=== PATIENT | female | born 1960 | race Caucasian/White ===

== ENCOUNTER 2020-06-30 07:04 | Day surgery (SDC) | payer BC ==
[2020-06-30] MEDS ORDERED: fentaNYL 100 MCG/2 ML SDV ONE (07:43)
[2020-06-30] MEDS ORDERED: Propofol 200 MG/20 ML SDV ONE (07:43)
[2020-06-30] MEDS ORDERED: Midazolam 1 MG/ML 2 ML SDV ONE (07:44)
[2020-06-30] MEDS ORDERED: Sodium Chloride 0.9% 1,000 ML IV SCH (08:00)
[2020-06-30] MEDS ORDERED: Ondansetron 4 MG/2 ML SDV ONE (08:51)
--- NOTE | 2020-06-30 12:25 | OR ---
DATE OF PROCEDURE: 06/30/2020 SURGEON: Russ Thrasher MD PROCEDURE: Colonoscopy. FINDINGS: Mass at cecum, approximately 4 cm in size, sessile. COMPLICATIONS: None. EXTRUSION LINE OPERATOR: None. ANESTHESIA: MAC. PREOPERATIVE DIAGNOSIS: Positive Cologuard test. POSTOPERATIVE DIAGNOSIS: Positive Cologuard test. RISKS: Risks, benefits, alternatives, and limitations including, but not limited to infection, bleeding, perforation and general surgical risks were explained to the patient, who wished to proceed. PROCEDURE IN DETAIL: The patient was placed in left lateral decubitus position. Digital rectal exam was performed. Scope was introduced and advanced atraumatically to the ileocecal valve. At the ileocecal valve proper, an approximately 4 cm mass was identified. This was elevated using Destiny ink. This was mostly removed using hot snare wire device. This was not completely removed, due to the concern of perforation. This will be sent to pathology. Scope was brought back through the remainder of the colon, and the patient was noted to have diverticulosis that was described as very mild and limited to sigmoid colon without diverticulosis or bleeding. No abnormalities on retroflexion. The patient tolerated the procedure well. Of note, the patient will be scheduled in approximately 1 month for removal of the remainder of this polyp. Russ Thrasher MD /[id number]
== END 2020-06-30 10:40 | disposition home or self-care (01) ==
LOC: JP.SDS 07:04
PROVIDERS: ATTEND Surgery
DX: D12.0 Benign neoplasm of cecum (principal); K57.30 Diverticulosis of large intestine without perforation or abscess without bleeding; J45.909 Unspecified asthma, uncomplicated; I10 Essential (primary) hypertension; E66.9 Obesity, unspecified; Z68.42 Body mass index [BMI] 45.0-49.9, adult; Z88.5 Allergy status to narcotic agent
CPT/HCPCS: 45381; 45385; J2250; J2405; J2704; J3010; J7030; 88305

== ENCOUNTER 2020-07-27 06:31 | Day surgery (SDC) | payer BC ==
[2020-07-27] MEDS ORDERED: Sodium Chloride 0.9% 1,000 ML IV SCH (07:00)
[2020-07-27] MEDS ORDERED: Propofol 200 MG/20 ML SDV ONE (07:37)
[2020-07-27] MEDS ORDERED: Midazolam 1 MG/ML 2 ML SDV ONE (07:37)
[2020-07-27] MEDS ORDERED: fentaNYL 100 MCG/2 ML SDV ONE (07:37)
--- NOTE | 2020-07-27 09:04 | OR ---
DATE OF PROCEDURE: 07/27/2020 SURGEON: Russ Thrasher MD PROCEDURE: Colonoscopy. FINDINGS: Complete removal of cecal polyp. COMPLICATIONS: None. LANCE CREWMEMBER/MLRS SERGEANT: None. ANESTHESIA: MAC. PREOPERATIVE DIAGNOSIS: Cecal polyp. POSTOPERATIVE DIAGNOSIS: Cecal polyp. RISKS: Risks, benefits, alternatives, and limitations including, but not limited to infection, bleeding, and perforation were explained to the patient, who wished to proceed. PROCEDURE IN DETAIL: The patient was placed in left lateral decubitus position. Digital rectal exam was performed without abnormality. Scope was introduced and advanced atraumatically to the ileocecal valve. Within the ileocecal valve, there was approximately 2 cm of polypoid-type lesion. This was removed using a snare wire device. Minimal bleeding was noted after this. The patient is again noted to have diverticulosis. No abnormalities on retroflexion. The patient tolerated the procedure well. Russ Thrasher MD /[id number]
== END 2020-07-27 09:30 | disposition home or self-care (01) ==
LOC: JP.SDS 06:31
PROVIDERS: ATTEND Surgery
DX: D12.0 Benign neoplasm of cecum (principal); I10 Essential (primary) hypertension; E66.01 Morbid (severe) obesity due to excess calories; J45.909 Unspecified asthma, uncomplicated; Z68.42 Body mass index [BMI] 45.0-49.9, adult; Z88.5 Allergy status to narcotic agent
CPT/HCPCS: 45385; J2250; J2704; J3010; J7030; 88305

== ENCOUNTER 2021-04-24 00:37 | Emergency (ER) | payer BC ==
--- NOTE | 2021-04-24 01:15 | EDM.PDOC ---
ED HPI GENERAL MEDICAL PROBLEM - General Chief Complaint: ENT Problem Stated Complaint: TOOTH BLEEDING Time Seen by Provider: 04/24/21 01:00 Source of Information: Reports: Patient, Family History Limitations: Reports: No Limitations - History of Present Illness INITIAL COMMENTS - FREE TEXT/NARRATIVE: 60-year-old female felt a blood clot in her mouth after eating supper tonight, and she has an oozing broken tooth on the right maxilla that will not stop bleeding. She also states she has blood in her urine which is new, and a rash on her legs. Her energy level has been normal, no fevers or chills. No recent trauma. She takes a 5 mg amlodipine blood pressure pill, her only medication. Onset: Unknown/Unsure Associated Symptoms: Reports: Other (She has some intermittent left flank pain). 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: Musculoskeletal History: Reports: None Psychiatric History: Reports: Anxiety - Infectious Disease History Infectious Disease History: Reports: Chicken Pox - Past Surgical History HEENT Surgical History: Reports: None Cardiovascular Surgical History: Reports: None GI Surgical History: Reports: Appendectomy, Colonoscopy Female Surgical History: Reports: Section, Kidney stone extraction Musculoskeletal Surgical History: Reports: Arthroscopic Knee, Knee Replacement Social & Family History - Family History Cardiac: Reports: None - Tobacco Use Tobacco Use Status *Q: Never Tobacco User Second Hand Smoke Exposure: Yes - Caffeine Use Caffeine Use: Reports: Soda, Tea - Recreational Drug Use Recreational Drug Use: No ED ROS GENERAL - Review of Systems Review Of Systems: See Below Constitutional: Denies: Fever, Chills, Malaise HEENT: Reports: Other (Oral bleeding) Respiratory: Denies: Shortness of Breath Cardiovascular: Denies: Chest Pain GI/Abdominal: Denies: Abdominal Pain, Nausea, Vomiting Skin: Reports: Other (Petechiae have broken out on her lower extremities over the past several hours) Neurological: Denies: Dizziness, Headache ED EXAM, GENERAL - Physical Exam Exam: See Below Exam Limited By: No Limitations General Appearance: Alert, No Apparent Distress Eye Exam: Bilateral Eye: Normal Inspection Throat/Mouth: Other (Patient has slow bleeding from several locations in the maxilla, also some small dark bulla in the mucosa) Neck: Supple, Non-Tender Respiratory/Chest: Lungs Clear Cardiovascular: Regular Rate, Rhythm GI/Abdominal: Soft, Non-Tender Extremities: Other (Numerous petechia bilaterally in the lower extremities) Neurological: Alert, Oriented, No Motor/Sensory Deficits Psychiatric: Anxious Skin Exam: Other (Numerous petechia of the lower extremities) Course - Vital Signs Last Recorded V/S: Last Vital Signs Temp 97.6 F 04/24/21 00:53 Pulse 73 04/24/21 00:53 Resp 16 04/24/21 00:53 BP 157/79 H 04/24/21 00:53 Pulse Ox 98 04/24/21 00:53 - Orders/Labs/Meds Labs: Laboratory Tests 04/24/21 04/24/21 04/24/21 Range/Units 01:15 01:15 01:15 WBC 8.2 (4.5-11.0) K/uL RBC 4.99 (3.30-5.50) M/uL Hgb 15.1 H (12.0-15.0) g/dL Hct 46.2 (36.0-48.0) % MCV 93 (80-98) fL MCH 30 (27-31) pg MCHC 33 (32-36) % Plt Count 6 L* (150-400) K/uL Neut % (Auto) 58.0 (36-66) % Lymph % (Auto) 29.0 (24-44) % [place] % (Auto) 9.7 H (2-6) % Eos % (Auto) 2.8 (2-4) % Baso % (Auto) 0.5 (0-1) % PT 10.1 (9.5-12.0) sec INR 0.93 (0.80-1.20) APTT 24.7 L (27.0-36.0) sec Sodium 143 (140-148) mmol/L Potassium 4.0 (3.6-5.2) mmol/L Chloride 105 (100-108) mmol/L Carbon Dioxide 27 (21-32) mmol/L Anion Gap 11.5 (5.0-14.0) mmol/L BUN 17 (7-18) mg/dL Creatinine 0.8 (0.6-1.0) mg/dL Est Cr Clr Drug Dosing TNP Estimated GFR (MDRD) > 60 (>60) Glucose 114 H (74-106) mg/dL Calcium 8.9 (8.5-10.1) mg/dL Total Bilirubin 0.6 (0.2-1.0) mg/dL AST 21 (15-37) U/L ALT 30 (12-78) U/L Alkaline Phosphatase 87 (46-116) U/L Total Protein 7.2 (6.4-8.2) g/dL Albumin 3.4 (3.4-5.0) g/dL Globulin 3.8 H (2.3-3.5) g/dL Albumin/Globulin Ratio 0.9 L (1.2-2.2) Urine Color (YELLOW) Urine Appearance (CLEAR) Urine pH (5.0-8.0) Ur Specific [place] (1.008-1.030) Urine Protein (NEGATIVE) mg/dL Urine Glucose (UA) (NEGATIVE) mg/dL Urine Ketones (NEGATIVE) mg/dL Urine Occult Blood (NEGATIVE) Urine Nitrite (NEGATIVE) Urine Bilirubin (NEGATIVE) Urine Urobilinogen (0.2-1.0) EU/dL Ur Leukocyte Esterase (NEGATIVE) Urine RBC (0-5) Urine WBC (0-5) Ur Epithelial Cells Amorphous Sediment Urine Bacteria Urine Mucus 04/24/21 Range/Units 01:30 WBC (4.5-11.0) K/uL RBC (3.30-5.50) M/uL Hgb (12.0-15.0) g/dL Hct (36.0-48.0) % MCV (80-98) fL MCH (27-31) pg MCHC (32-36) % Plt Count (150-400) K/uL Neut % (Auto) (36-66) % Lymph % (Auto) (24-44) % [place] % (Auto) (2-6) % Eos % (Auto) (2-4) % Baso % (Auto) (0-1) % PT (9.5-12.0) sec INR (0.80-1.20) APTT (27.0-36.0) sec Sodium (140-148) mmol/L Potassium (3.6-5.2) mmol/L Chloride (100-108) mmol/L Carbon Dioxide (21-32) mmol/L Anion Gap (5.0-14.0) mmol/L BUN (7-18) mg/dL Creatinine (0.6-1.0) mg/dL Est Cr Clr Drug Dosing Estimated GFR (MDRD) (>60) Glucose (74-106) mg/dL Calcium (8.5-10.1) mg/dL Total Bilirubin (0.2-1.0) mg/dL AST (15-37) U/L ALT (12-78) U/L Alkaline Phosphatase (46-116) U/L Total Protein (6.4-8.2) g/dL Albumin (3.4-5.0) g/dL Globulin (2.3-3.5) g/dL Albumin/Globulin Ratio (1.2-2.2) Urine Color Red A (YELLOW) Urine Appearance Cloudy A (CLEAR) Urine pH 7.0 (5.0-8.0) Ur Specific [place] 1.020 (1.008-1.030) Urine Protein 30 H (NEGATIVE) mg/dL Urine Glucose (UA) Negative (NEGATIVE) mg/dL Urine Ketones Negative (NEGATIVE) mg/dL Urine Occult Blood Large H (NEGATIVE) Urine Nitrite Negative (NEGATIVE) Urine Bilirubin Negative (NEGATIVE) Urine Urobilinogen 0.2 (0.2-1.0) EU/dL Ur Leukocyte Esterase Negative (NEGATIVE) Urine RBC >100 H (0-5) Urine WBC 0-5 (0-5) Ur Epithelial Cells Few Amorphous Sediment Not seen Urine Bacteria Few Urine Mucus Not seen Meds: Medications Discontinued Medications Generic Name Dose Route Start Last Admin Trade Name Freq PRN Reason Stop Dose Admin Dexamethasone 12 mg 04/24/21 01:57 04/24/21 02:04 Dexamethasone 4 Mg/Ml Sdv IVPUSH 04/24/21 01:58 12 mg ONETIME ONE Administration Immune Globulin 100 gm 04/24/21 01:56 04/24/21 02:47 Immune Globulin,Gamma (Igg) 20 Gm/200 Ml Sdv IV 04/24/21 01:57 100 gm ONETIME ONE Administration - Re-Assessments/Exams Free Text/Narrative Re-Assessment/Exam: 04/24/21 01:15 This patient has a combination of spontaneous oral mucosal bleeding, hematuria and petechiae of the lower extremities. 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 04/24/21 02:39 PT and PTT were normal, hemoglobin was normal and white count normal. White cell differential basically normal. Platelet count was only 6000, indicating ITP. IV was started and the patient was given 100 g of IVIG, along with 12 mg of IV dexamethasone. Phone consultation was made with [facility] with Dr. Diaz, hospitalist, and the oncologist on-call. Acceptance was made for transfer. Departure - Departure Time of Disposition: 02:51 Disposition: DC/Tfer to Other Clinical Impression: Acute ITP, Mucosal bleeding, Hematuria, gross - Discharge Information Referrals: PCP,None [Primary Care Provider] - Forms: ED Department Discharge Care Plan Goals: Patient was transferred to [facility] for admission for observation and further treatment for acute onset ITP and severe thrombocytopenia with spontan eous hemorrhage. Sepsis Event Note (ED) - Evaluation Sepsis Screening Result: No Definite Risk - Focused Exam Vital Signs: Vital Signs Temp Pulse Resp BP Pulse Ox 04/24/21 00:53 97.6 F 73 16 157/79 H 98
[2021-04-24] MEDS ORDERED: [UNRECOGNIZED DRUG - OTHER] IV ONE (01:56)
[2021-04-24] MEDS ORDERED: IMMUNE GLOBULIN GAMMA IV ONE (01:56)
[2021-04-24] MEDS ORDERED: Dexamethasone 4 MG/ML SDV IVPUSH ONE (01:57)
== END 2021-04-24 02:51 | disposition other institution (70) ==
LOC: JP.ED 00:37
DX: R04.89 Hemorrhage from other sites in respiratory passages (principal); K13.79 Other lesions of oral mucosa; D69.3 Immune thrombocytopenic purpura; R31.0 Gross hematuria; I10 Essential (primary) hypertension; Z88.6 Allergy status to analgesic agent
CPT/HCPCS: 36415; 80053; 81001; 85025; 85610; 85730; 96374; 96375; 99285; J1100; J1569

== ENCOUNTER 2021-04-30 07:00 | Emergency (ER) | payer BC ==
[2021-04-30] MEDS ORDERED: Ondansetron 4 MG/2 ML SDV IVPUSH ONE ×2 (07:19→11:10)
[2021-04-30] MEDS ORDERED: HYDROmorphone 0.5 MG/0.5 ML Syringe IVPUSH ONE ×3 (07:19→11:10)
--- NOTE | 2021-04-30 07:24 | EDM.PDOC ---
<Sergio Lopez - Last Filed: 04/30/21 12:06> ED HPI GENERAL MEDICAL PROBLEM - General Chief Complaint: Abdominal Pain Stated Complaint: LIGHT HEADED, RECENTLY DIAGNOSED WITH ITP Time Seen by Provider: 04/30/21 07:05 - Related Data Allergies Allergy/AdvReac Type Severity Reaction Status Date / Time morphine Allergy Nausea and Verified 04/30/21 07:12 Vomiting Home Meds: Home Meds amLODIPine Besylate [Amlodipine Besylate] 5 mg PO BEDTIME 06/27/20 [History] Omeprazole 20 mg PO DAILY 04/30/21 [History] predniSONE [Prednisone] 40 mg PO DAILY 04/30/21 [History] Course - Re-Assessments/Exams Free Text/Narrative Re-Assessment/Exam: 04/30/21 09:11 IMPRESSION: 1. Intra and extrahepatic bile duct dilation, with multiple stones in the mid and distal common bile duct. 2. Mild fat stranding about the distal pancreatic body and tail compatible with acute pancreatitis. No evidence of parenchymal necrosis. No dilation of the pancreatic duct. 3. New stones within the left renal pelvis measuring up to 1.8 cm in size, with caliceal dilation suggesting a degree of obstruction. There is also urothelial thickening and enhancement of the proximal left ureter which may be inflammatory. 4. New 1.8 cm cystic lesion in the left adnexa. This could be further evaluated with nonemergent pelvic ultrasound. 04/30/21 10:28 Dr. Queen accepted transfer the patient. She will be transferred to the [facility] in [place]. She remained stable. I personally performed or re-performed the physical examination and medical decision making. I have verified all student documentation or findings, including history, physical exam and/or medical decision making. 04/30/21 12:05 Lactated Ringer's at 500 cc an hour was started on discharge, she will receive this while being transferred Departure - Departure Time of Disposition: 11:23 Disposition: DC[facility]fer [facility] Clinical Impression: Pancreatitis Qualifiers: Chronicity: acute Pancreatitis type: biliary Acute pancreatitis complication: unspecified Qualified Code(s): K85.10 - Biliary acute pancreatitis without necrosis or infection Abdominal pain Qualifiers: Abdominal location: upper abdomen, unspecified Qualified Code(s): R10.10 - Upper abdominal pain, unspecified - Discharge Information Referrals: Corrina Bentley MD [Primary Care Provider] - Forms: ED Department Discharge Care Plan Goals: Patient is to be transferred to [facility] to be admitted by the hospitalist service, Dr. Queen accepted the patient. She will need a gastroenterology consultation and likely ERCP or surgical consultation to treat biliary induced pancreatitis. <Hilary Sandoval - Last Filed: 04/30/21 13:08> ED HPI GENERAL MEDICAL PROBLEM - General Source of Information: Reports: Patient, Family History Limitations: Reports: No Limitations - History of Present Illness INITIAL COMMENTS - FREE TEXT/NARRATIVE: 60 year old female with recent diagnosis for ITP, platelet count of 6,000, presents with abdominal pain. She reports that she was just discharged from [facility] after about a one week inpatient stay due to treatment for her ITP. When she left her platelets were between 70,000-75,000. Center to right upper quadrant abdominal pain started last night. The pain radiates to her center back and feels like "a rubber band is strapping around her". Her pain d oes seem to be intermittent. Associated symptoms include nausea, vomiting, blood in urine, and "some dark spots in her stool noted this AM". She reports she was started on "steroids" and continues those out patient after her discharge from [place]. Onset: Gradual Onset Date: 04/29/21 Duration: Day(s): Location: Reports: Abdomen (Center to right upper quadrent abdominal pain, radiating to her center back) Quality: Reports: Other ("Feels like a rubber band strapping around her") Improves with: Reports: None Worsens with: Reports: None Associated Symptoms: Reports: Nausea/Vomiting Upper Abdomen Pain Score (Numeric/FACES): 10 Past Medical History HEENT History: Reports: Other (See Below) Other HEENT History: broken teeth Cardiovascular History: Reports: Hypertension Gastrointestinal History: Reports: None Genitourinary History: Reports: None, 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: Musculoskeletal History: Reports: None Psychiatric History: Reports: Anxiety - Infectious Disease History Infectious Disease History: Reports: Chicken Pox - Past Surgical History HEENT Surgical History: Reports: None Cardiovascular Surgical History: Reports: None GI Surgical History: Reports: Appendectomy, Colonoscopy Female Surgical History: Reports: Section, Kidney stone extraction Musculoskeletal Surgical History: Reports: Arthroscopic Knee, Knee Replacement Social & Family History - Family History Cardiac: Reports: None - Caffeine Use Caffeine Use: Reports: Soda, Tea ED ROS GENERAL - Review of Systems Review Of Systems: See Below Constitutional: Reports: Malaise, Fatigue HEENT: Reports: No Symptoms Respiratory: Denies: Shortness of Breath, Pleuritic Chest Pain Cardiovascular: Denies: Chest Pain Endocrine: Reports: No Symptoms GI/Abdominal: Reports: Abdominal Pain, Bloody Stool, Nausea, Vomiting. Denies: Diarrhea : Reports: Hematuria Musculoskeletal: Reports: No Symptoms Skin: Reports: Other (Bilateral lower extremity petechi ) Neurological: Reports: No Symptoms Psychiatric: Reports: No Symptoms Hematologic/Lymphatic: Reports: Easy Bleeding Immunologic: Reports: No Symptoms ED EXAM, GI/ABD - Physical Exam Exam: See Below Text/Narrative:: Patient is laying on the cart on her left side, guarding her abdomen and at times moaning out due to the pain. Petechia present to bilateral lower extremities, abdomen is tender with palpation to center and right upper quadrant. Scattered bruising to legs and abdomen. Lungs clear throughout. Provider bedside US did not reveal any obvious acute bleeding or abnormal appearance of gallbladder. She is alert and oriented, skin is warm and dry, Respirations are equal and non labored. Exam Limited By: No Limitations General Appearance: Alert, Mild Distress Throat/Mouth: Normal Lips, Normal Voice Head: Atraumatic Neck: Normal Inspection, Full Range of Motion Respiratory/Chest: No Respiratory Distress, Lungs Clear. No: Respiratory Distress Cardiovascular: Normal Peripheral Pulses, Other (Blood pressure stable). No: Tachycardia GI/Abdominal Exam: Soft, Guarding, Tender, Other ( center andRight upper quadrent) (Female) Exam: Normal External Exam Back Exam: Normal Inspection Extremities: Other (petechia bilateral lower extremities) Neurological: Alert, Oriented, Normal Cognition Psychiatric: Normal Affect Skin Exam: Warm, Dry, Petechiae (bilateral lower extremities) Lymphatic: No Adenopathy Course - Vital Signs Text/Narrative:: CBC, CMP, and lipase, CT abdomen with contrast ordered. Provider US obtained without acute obvious findings to the gallbladder, no bleeding in the abdomen seen. 0.5 mg Dilaudid and 4mg Zofran given for pain and nausea control which seem to be helping as blood pressure is decreased and the patient is no longer holding emesis bag. Cool compress to forehead. Patient is in agreement with plan of care at this time. Last Recorded V/S: Last Vital Signs Temp 36.1 C 04/30/21 10:46 Pulse 53 L 04/30/21 10:46 Resp 20 04/30/21 10:46 BP 164/77 H 04/30/21 10:46 Pulse Ox 100 04/30/21 10:46 - Orders/Labs/Meds Labs: Laboratory Tests 04/30/21 04/30/21 04/30/21 Range/Units 07:35 07:35 07:35 WBC 15.0 H (4.5-11.0) K/uL RBC 5.09 (3.30-5.50) M/uL Hgb 15.5 H (12.0-15.0) g/dL Hct 45.6 (36.0-48.0) % MCV 90 (80-98) fL MCH 31 (27-31) pg MCHC 34 (32-36) % Plt Count 90 L (150-400) K/uL Neut % (Auto) 76.3 H (36-66) % Lymph % (Auto) 15.1 L (24-44) % [place] % (Auto) 8.3 H (2-6) % Eos % (Auto) 0.2 L (2-4) % Baso % (Auto) 0.1 (0-1) % Sodium 138 L (140-148) mmol/L Potassium 3.7 (3.6-5.2) mmol/L Chloride 103 (100-108) mmol/L Carbon Dioxide 25 (21-32) mmol/L Anion Gap 13.7 (5.0-14.0) mmol/L BUN 19 H (7-18) mg/dL Creatinine 1.0 (0.6-1.0) mg/dL Est Cr Clr Drug Dosing 47.80 mL/min Estimated GFR (MDRD) 56 L (>60) Glucose 124 H (74-106) mg/dL Calcium 7.7 L (8.5-10.1) mg/dL Total Bilirubin 0.7 (0.2-1.0) mg/dL AST 50 H D (15-37) U/L ALT 98 H (12-78) U/L Alkaline Phosphatase 64 (46-116) U/L Total Protein 7.4 (6.4-8.2) g/dL Albumin 2.4 L (3.4-5.0) g/dL Globulin 5.0 H (2.3-3.5) g/dL Albumin/Globulin Ratio 0.5 L (1.2-2.2) Lipase 3242 H (73-393) U/L Meds: Medications Discontinued Medications Generic Name Dose Route Start Last Admin Trade Name Freq PRN Reason Stop Dose Admin Hydromorphone HCl 0.5 mg 04/30/21 07:19 04/30/21 07:24 Hydromorphone 0.5 Mg/0.5 Ml Syringe IVPUSH 04/30/21 07:20 0.5 mg ONETIME ONE Administration Hydromorphone HCl 0.5 mg 04/30/21 09:01 04/30/21 09:05 Hydromorphone 0.5 Mg/0.5 Ml Syringe IVPUSH 04/30/21 09:02 0.5 mg ONETIME ONE Administration Hydromorphone HCl 0.5 mg 04/30/21 11:10 04/30/21 11:15 Hydromorphone 0.5 Mg/0.5 Ml Syringe IVPUSH 04/30/21 11:11 0.5 mg ONETIME ONE Administration Sodium Chloride 1,000 mls @ 250 mls/hr 04/30/21 07:30 04/30/21 07:29 Normal Saline IV 250 mls/hr ASDIRECTED JOHNATHON Administration Sodium Chloride 85 mls @ 3 mls/sec 04/30/21 08:15 04/30/21 08:19 Normal Saline IV 04/30/21 08:16 3 mls/sec ONETIME ONE Administration Lactated Ringer's 1,000 mls @ 500 mls/hr 04/30/21 11:30 04/30/21 11:22 Ringers, Lactated IV 500 mls/hr ASDIRECTED JOHNATHON Administration Iopamidol 150 ml 04/30/21 08:15 04/30/21 08:19 Iopamidol 612 Mg/Ml 150 Ml Bottle IV 150 ml . DIRECTED JOHNATHON Administration Metoclopramide HCl 5 mg 04/30/21 08:18 04/30/21 08:24 Metoclopramide 10 Mg/2 Ml Sdv IVPUSH 04/30/21 08:19 5 mg ONETIME ONE Administration Ondansetron HCl 4 mg 04/30/21 07:19 04/30/21 07:25 Ondansetron 4 Mg/2 Ml Sdv IVPUSH 04/30/21 07:20 4 mg ONETIME ONE Administration Ondansetron HCl 4 mg 04/30/21 11:10 04/30/21 11:15 Ondansetron 4 Mg/2 Ml Sdv IVPUSH 04/30/21 11:11 4 mg ONETIME ONE Administration Sodium Chloride 10 ml 04/30/21 08:15 04/30/21 08:19 Sodium Chloride 0.9% 10 Ml Syringe FLUSH 10 ml ONETIME PRN Administration PER RADIOLOGY PROTOCOL - Re-Assessments/Exams Free Text/Narrative Re-Assessment/Exam: Nausea continues despite Zofran. Ordered 5mg of Reglan 04/30/21 08:49 04/30/21 09:04 0.5 mg Dilaudid repeat dose ordered for returning pain. Results of CT are back with multiple stones in CBD, this patient might need an ERCP. Decision to transfer to [facility] for higher level of care. Departure - Departure Time of Disposition: 11:23 Sepsis Event Note (ED) - Focused Exam Vital Signs: Vital Signs Temp Pulse Resp BP Pulse Ox 04/30/21 10:46 36.1 C 53 L 20 164/77 H 100 04/30/21 08:22 52 L 20 173/88 H 95 04/30/21 07:41 54 L 20 118/41 L 95 04/30/21 07:22 36.3 C 63 18 157/76 H 98 04/30/21 07:21 36.3 C 63 18 157/76 H 98
[2021-04-30] MEDS ORDERED: Sodium Chloride 0.9% 1,000 ML IV SCH (07:30)
[2021-04-30] MEDS ORDERED: Iopamidol 612 MG/ML 150 ML Bottle IV SCH (08:15)
[2021-04-30] MEDS ORDERED: Sodium Chloride 0.9% 10 ML Syringe FLUSH PRN (08:15)
[2021-04-30] MEDS ORDERED: Metoclopramide 10 MG/2 ML SDV IVPUSH ONE (08:18)
--- NOTE | 2021-04-30 08:57 | CRLCT ---
For Patients: As a result of the 21st Century Cures Act, medical imaging exams and procedure reports are released immediately into your electronic medical record. You may view this report before your referring provider. If you have questions, please contact your health care provider. INDICATION: Upper abdominal pain, nausea TECHNIQUE: CT of the abdomen and pelvis with 150 cc Isovue-300 IV contrast. Coronal and sagittal reconstructions. COMPARISON: CT of the abdomen and pelvis 04/24/2007. FINDINGS: Mild diffuse hepatic steatosis. The spleen and adrenal glands are negative. Hepatic and portal veins are patent. There is mild intra and extrahepatic bile duct dilation, with the common bile duct measuring up to 11 mm in diameter. There are multiple stones within the mid and distal common bile duct (series 3 image 48). The gallbladder is normal in appearance. Mild inflammatory fat stranding about the distal pancreatic body and tail compatible with acute pancreatitis. No dilation of the pancreatic duct. No evidence of parenchymal necrosis. No peripancreatic fluid collection. Symmetric enhancement of the kidneys. No right hydronephrosis no ureteral dilation. There are two new stones within the left renal pelvis measuring 1.2 cm and 1.8 cm (series 2, image 64). Additional small nonobstructing stone in the lower pole of the left kidney. There is left renal calyceal dilation suggesting a degree of obstruction. No dilation of the left ureter. There is urothelial thickening and enhancement of the proximal left ureter which may be inflammatory. The bladder and uterus are normal in appearance. There is a new 1.8 cm cystic lesion in the left adnexa (series 2, image 125). No bowel dilation. Colonic diverticulosis without evidence of diverticulitis. The appendix is not identified. No intraperitoneal free air or fluid. Retroaortic left renal vein. No lymphadenopathy. Degenerative changes of the lower thoracic spine. The lung bases are clear. IMPRESSION: 1. Intra and extrahepatic bile duct dilation, with multiple stones in the mid and distal common bile duct. 2. Mild fat stranding about the distal pancreatic body and tail compatible with acute pancreatitis. No evidence of parenchymal necrosis. No dilation of the pancreatic duct. 3. New stones within the left renal pelvis measuring up to 1.8 cm in size, with caliceal dilation suggesting a degree of obstruction. There is also urothelial thickening and enhancement of the proximal left ureter which may be inflammatory. 4. New 1.8 cm cystic lesion in the left adnexa. This could be further evaluated with nonemergent pelvic ultrasound. Please note that all CT scans at this facility use dose modulation, iterative reconstruction, and/or weight-based dosing when appropriate to reduce radiation dose to as low as reasonably achievable. Dictated by Cherelle Joseph MD @ 04/30/2021 8:54:[address] Cherelle Joseph @ Apr 30 2021 8:54AM
[2021-04-30] MEDS ORDERED: Lactated Ringers 1,000 ML IV SCH (11:30)
== END 2021-04-30 11:26 ==
LOC: JP.ED 07:00
DX: K85.10 Biliary acute pancreatitis without necrosis or infection (principal); I10 Essential (primary) hypertension; Z88.5 Allergy status to narcotic agent; Z79.899 Other long term (current) drug therapy
CPT/HCPCS: 36415; 74177; 80053; 83690; 85025; 96374; 96375; 96376; 99285; J1170; J2405; J2765; J7030; J7120; Q9967

== ENCOUNTER 2021-07-16 06:27 | Day surgery (SDC) | payer BC ==
[2021-07-16] MEDS ORDERED: Sodium Chloride 0.9% 1,000 ML IV SCH (07:30)
[2021-07-16] MEDS ORDERED: Propofol 200 MG/20 ML SDV ONE (07:33)
[2021-07-16] MEDS ORDERED: fentaNYL 100 MCG/2 ML SDV ONE (07:33)
[2021-07-16] MEDS ORDERED: Midazolam 1 MG/ML 2 ML SDV ONE (07:33)
--- NOTE | 2021-07-16 11:11 | OR ---
DATE OF PROCEDURE: 07/16/2021 SURGEON: Russ Thrasher MD PROCEDURE: Colonoscopy. FINDINGS: Sessile type polypoid lesion on the cecum (completely removed in 1 piece using endoscopic mucosal resection technique). COMPLICATIONS: None. ELECTRONIC WARFARE TECHNICIAN: None. ANESTHESIA: MAC. PREOPERATIVE DIAGNOSIS: History of colon polyps. POSTOPERATIVE DIAGNOSIS: History of colon polyps. RISKS: Risks, benefits, alternatives, and limitations including, but not limited to infection, bleeding, perforation, false positives, and false negatives were explained to the patient and she wished to proceed. PROCEDURE IN DETAIL: The patient was placed in left lateral decubitus position. Digital rectal exam was performed without abnormality. Scope was introduced and advanced atraumatically to the ileocecal valve. At the junction of the ileocecal valve and the cecum, there was a sessile type polypoid type lesion. This was approximately 1.5 cm in size. This was resected using endoscopic mucosal resection technique including elevation with normal saline and subsequent resection with wire device. This was removed in 1 single piece. This was sent to pathology. No abnormal bleeding was noted after removal. Scope was brought back to the remainder of the colon. The patient did have some small scattered diverticula. No other abnormalities were noted. Greater than 8 minutes was spent removing the scope. Prep was acceptable, approximately 90% of the luminal surface could be seen. The patient tolerated the procedure well. Russ Thrasher MD /[id number]
== END 2021-07-16 09:42 | disposition home or self-care (01) ==
LOC: JP.SDS 06:27
PROVIDERS: ATTEND Surgery
DX: Z12.11 Encounter for screening for malignant neoplasm of colon (principal); K57.30 Diverticulosis of large intestine without perforation or abscess without bleeding; D12.0 Benign neoplasm of cecum; E66.9 Obesity, unspecified; Z88.5 Allergy status to narcotic agent
CPT/HCPCS: 45390; J2250; J2704; J3010; J7030; 88305

== ENCOUNTER 2025-01-25 14:38 | Observation (INO) | payer BC ==
[2025-01-25] MEDS ORDERED: Sodium Chloride 0.9% 10 ML Syringe FLUSH PRN (16:03)
[2025-01-25] MEDS: Sodium Chloride 0.9% 10 ML Syringe FLUSH ONE (16:39)
[2025-01-25] MEDS: Iopamidol 755 Mg/ML 100 ML Bottle IV ONE (16:39)
[2025-01-25] MEDS: Sodium Chloride 0.9% 100 ML IV ONE (16:39)
[2025-01-25] MEDS: Aspirin 81 MG Tab.EC PO ONE (17:57)
[2025-01-25] MEDS ORDERED: Ondansetron 4 MG/2 ML SDV IV PRN (20:43)
[2025-01-25] MEDS ORDERED: Sennosides/Docusate Sodium 50-8.6 MG Tab PO PRN (20:43)
[2025-01-25] MEDS ORDERED: Melatonin 3 MG Tab PO PRN (20:43)
[2025-01-25] MEDS ORDERED: Ondansetron 4 MG Tab.DIS PO PRN (20:43)
[2025-01-25] MEDS: atorvaSTATin 20 MG Tab PO SCH (21:00)
[2025-01-25] MEDS: Clopidogrel 75 MG Tab PO SCH (21:00)
[2025-01-26] MEDS: Acetaminophen 325 MG Tab PO PRN (05:19)
[2025-01-26 05:56] LABS: HEMOGLOBIN 15.4 g/dL (11.2-15.5); MEAN CORPUSCULAR HEMOGLOBIN 31.2 pg (31.6-35.5); MEAN CORPUSCULAR HGB CONC 34.2 g/dL (31.6-35.5); MEAN CORPUSCULAR VOLUME 91.3 fL (81.4-99.0); RED BLOOD CELL COUNT 4.93 M/uL (3.77-5.24); WHITE BLOOD CELL COUNT,WBC 7.4 K/uL (3.2-11.0)
[2025-01-26 06:15] LABS: ANION GAP 11.4 mmol/L (5.0-14.0); CALCIUM 9.3 mg/dL (8.5-10.1); CREATININE 0.8 mg/dL (0.6-1.0); EST CRCL DRUG DOSING (CG) 55.45 mL/min
[2025-01-26] MEDS: Aspirin 81 MG Tab.EC PO SCH (08:21)
[2025-01-26] MEDS ORDERED: amLODIPine 5 MG Tab PO SCH (21:00)
== END 2025-01-26 12:45 | disposition home or self-care (01) ==
LOC: JP.ED 14:38 → JP.MS 19:39
PROVIDERS: ADMIT Registered Nurse; ATTEND Hospitalist
DX: I63.9 Cerebral infarction, unspecified (principal); I10 Essential (primary) hypertension; E66.9 Obesity, unspecified; Z88.5 Allergy status to narcotic agent; Z68.30 Body mass index [BMI] 30.0-30.9, adult; Z79.82 Long term (current) use of aspirin; Z79.899 Other long term (current) drug therapy
CPT/HCPCS: 36415; 70496; 70496-26; 70498; 70498-26; 80048; 85027; 93306; 97161-GP; 99222; 99238; 99284; 99285; A9270-GY; G0378; Q9967